=== PATIENT | female | born 1970 | race Two or more races ===

== ENCOUNTER 2018-06-26 15:25 | Emergency (ER) | payer MEDICAID ==
[~2018-06-26] VITALS: Ht 144.8 cm; Wt 65.8 kg
[2018-06-26 15:32] VITALS: BP 175/90
== END 2018-06-26 17:39 | disposition home or self-care (01) ==
LOC: ER 15:32
DX: S90.461A Insect bite (nonvenomous), right great toe, initial encounter (principal); B99.9 Unspecified infectious disease; W57.XXXA Bitten or stung by nonvenomous insect and other nonvenomous arthropods, initial encounter; Y93.89 Activity, other specified; Y99.8 Other external cause status; Y92.89 Other specified places as the place of occurrence of the external cause

== ENCOUNTER 2023-02-05 13:57 | Emergency (ER) | payer MEDICAID ==
[~2023-02-05] VITALS: Ht 149.9 cm; Wt 52.7 kg
[2023-02-05 16:17] VITALS: BP 139/76
[2023-02-05] MEDS ORDERED: KETOROLAC TROMETH 60MG/2ML VIAL IM ONE (17:15)
[2023-02-05] MEDS ORDERED: IBUP800T27 PO (17:26)
== END 2023-02-05 17:33 | disposition home or self-care (01) ==
LOC: ER 13:57
DX: S29.012A Strain of muscle and tendon of back wall of thorax, initial encounter (principal); M25.512 Pain in left shoulder; X50.1XXA Overexertion from prolonged static or awkward postures, initial encounter; Y93.89 Activity, other specified; Y92.89 Other specified places as the place of occurrence of the external cause; Y99.8 Other external cause status
CPT/HCPCS: 72070; 96372; 99283; J1885